=== PATIENT | male | born 1995 | race African-American/Black ===

== ENCOUNTER 2017-06-25 17:56 | Emergency (ER) | payer SELFPAY ==
[~2017-06-25] VITALS: Ht 172.7 cm; Wt 52.2 kg
[2017-06-25 18:42] LABS: HEMATOCRIT 43.5 % (38.0-50.0); HEMOGLOBIN 15.4 G/DL (12.5-16.6); MCH 31.4 PG (29.0-34.0); MCHC 35.4 G/DL (30.0-36.0); MCV 88.8 FL (86-99); PLATELET COUNT 192 K/uL (156-360); RBC DIS.WIDTH-CV 12.6 % (11.8-14.6); RBC DIS.WIDTH-SD 41.1 % (39-53); WHITE BLOOD COUNT 7.4 K/uL (4.1-10.2)
[2017-06-25 18:51] LABS: CHLORIDE 104 mEq/L (99-109); POTASSIUM 3.7 mEq/L (3.7-5.4); SODIUM 137 mEq/L (136-147)
[2017-06-25 18:53] LABS: GLUCOSE 94 mg/dL (70-99)
[2017-06-25 18:56] LABS: SERUM ETHYL ALCOHOL < 10 mg/dL
[2017-06-25 18:57] LABS: CREATININE 0.8 mg/dL (0.6-1.3)
[2017-06-25 18:58] LABS: UREA NITROGEN (BUN) 13 mg/dL (9-23)
[2017-06-25 18:59] LABS: GFR ESTIMATE (CALCULATED) > 59 mL/min/ (58.99-99999)
[2017-06-25 19:00] LABS: AMPHETAMINE NEGATIVE (500 ng/mL); BARBITURATES NEGATIVE (200 ng/mL); BENZODIAZEPINES NEGATIVE (150 ng/mL); BUPRENORPHINE NEGATIVE (10 ng/mL); COCAINE NEGATIVE (150 ng/mL); METHADONE NEGATIVE (200 ng/mL); METHAMPHETAMINE NEGATIVE (500 ng/mL); OPIATES (MORPHINE) NEGATIVE (100 ng/mL); OXYCODONE NEGATIVE (100 ng/mL); PHENCYCLIDINE NEGATIVE (25 ng/mL); PROPOXYPHENE NEGATIVE (300 ng/mL); THC CANNABINOIDS NEGATIVE (50 ng/mL); TRICYCLIC ANTIDEPRESSANTS NEGATIVE (300 ng/mL)
[2017-06-25 21:07] VITALS: BP 139/69
== END 2017-06-25 21:12 | disposition home or self-care (01) ==
LOC: EME 17:56
PROC: 0HQEXZZ Repair Left Lower Arm Skin, External Approach (ICD-10-PCS; principal; 2017-06-25)
DX: F43.24 Adjustment disorder with disturbance of conduct (principal); S51.811A Laceration without foreign body of right forearm, initial encounter; X78.9XXA Intentional self-harm by unspecified sharp object, initial encounter; F17.200 Nicotine dependence, unspecified, uncomplicated
CPT/HCPCS: 80048; 85027; 90837; 99281; 99285; G0480

== ENCOUNTER 2017-07-07 18:11 | Emergency (ER) | payer OTHER ==
[~2017-07-07] VITALS: Ht 175.3 cm; Wt 56.3 kg
[2017-07-07 19:06] VITALS: BP 124/68
== END 2017-07-07 19:06 | disposition home or self-care (01) ==
LOC: EME 18:11
DX: S51.812D Laceration without foreign body of left forearm, subsequent encounter (principal); F17.200 Nicotine dependence, unspecified, uncomplicated
CPT/HCPCS: 99281; 99283

== ENCOUNTER 2017-07-08 22:25 | Emergency (ER) | payer OTHER ==
[~2017-07-08] VITALS: Ht 175.3 cm; Wt 48.3 kg
[2017-07-08 23:42] VITALS: BP 125/65
== END 2017-07-08 23:45 | disposition home or self-care (01) ==
LOC: EME → EDBD 22:25 → EME 22:25
DX: F43.0 Acute stress reaction (principal); F81.9 Developmental disorder of scholastic skills, unspecified; F17.200 Nicotine dependence, unspecified, uncomplicated; Z91.5 Personal history of self-harm
CPT/HCPCS: 90837; 99281; 99284